=== PATIENT | female | born 2000 | race Caucasian/White ===

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

== ENCOUNTER 2020-04-18 13:14 | Emergency (ER) | payer OTHER ==
[2020-04-18] MEDS ORDERED: PROPARACAINE 0.5% OPHTH DROPS 15 ML BTL BOTH EYES STA (13:56)
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
[2020-04-18] MEDS ORDERED: FLUORESCEIN STRIPS 1 MG STRIP LEFT EYE ONE (14:44)
[2020-04-18 15:51] VITALS: BP 109/76; PULSE 66; RESP 16; TEMP 98.5
== END 2020-04-18 15:52 | disposition home or self-care (01) ==
LOC: EC 13:14
DX: H53.8 Other visual disturbances (principal); W22.8XXA Striking against or struck by other objects, initial encounter; Y92.69 Other specified industrial and construction area as the place of occurrence of the external cause; Y99.0 Civilian activity done for income or pay
CPT/HCPCS: 70480; 99284

== ENCOUNTER → 2020-05-03 | Outpatient (CLI) | payer OTHER | END | disposition home or self-care (01) | LOC: LABWHC1 08:23 | PROVIDERS: ATTEND Pediatrics Pediatric Infectious Diseases | DX: Z03.818 Encounter for observation for suspected exposure to other biological agents ruled out (principal) ==

== ENCOUNTER → 2020-05-04 | Outpatient (CLI) | payer OTHER | END | disposition home or self-care (01) | LOC: LABWHC1 16:27 | PROVIDERS: ATTEND Pediatrics Pediatric Infectious Diseases | DX: Z11.59 Encounter for screening for other viral diseases (principal) ==

== ENCOUNTER → 2020-07-05 | Outpatient (CLI) | payer OTHER | END | disposition home or self-care (01) | LOC: LABWHC1 14:32 | PROVIDERS: ATTEND Pediatrics Pediatric Infectious Diseases | DX: Z11.59 Encounter for screening for other viral diseases (principal) | CPT/HCPCS: 87635; C9803 ==

== ENCOUNTER 2020-07-13 15:44 | Emergency (ER) | payer OTHER ==
[2020-07-13 15:56] VITALS: TEMP 98.5
[2020-07-13 17:17] LABS: Basophils # (A) 0.1 k/uL (0-0.2); Basophils % (A) 1 %; Eosinophils # (A) 0.2 k/uL (0-0.7); Eosinophils % (A) 2 %; HCT 47.8 % (34.0-46.0); HGB 15.5 gm/dL (11.4-16.0); Lymphocytes # (A) 1.5 k/uL (1.0-4.8); Lymphocytes % (A) 21 %; MCH 29.3 pg (25.0-35.0); MCHC 32.3 g/dL (31.0-37.0); MCV 90.6 fL (80.0-100.0); Mean Platelet Volume 8.4; Monocytes # (A) 0.4 k/uL (0-1.0); Monocytes % (A) 5 %; Neutrophils # (A) 4.7 k/uL (1.3-7.7); Neutrophils % (A) 68 %; Platelet Count 195 k/uL (150-450); RBC 5.28 m/uL (3.80-5.40); RDW 13.3 % (11.5-15.5); WBC 6.9 k/uL (4.0-11.0)
[2020-07-13 17:24] LABS: Appearance,Urine Cloudy (Clear); Bacteria,Urine Occasional /hpf; Bilirubin,Urine Negative (Negative); Blood,Urine Negative (Negative); Color,Urine Yellow; Glucose,Urine (UA) Negative (Negative); Ketones,Urine 2+ (Negative); Leukocyte Esterase,Urine Small (Negative); Mucus,Urine Few /hpf; Nitrite,Urine Negative (Negative); PH, Urine 6.5 (5.0-8.0); Protein,Urine Negative (Negative); RBC,Urine 2 /hpf (0-5); Specific Gravity,Urine 1.021 (1.001-1.035); Squamous Epithelial Cell,Urine 9 /hpf (0-4); Urobilinogen,Urine <2.0 mg/dL (<2.0); WBC,Urine 8 /hpf (0-5)
[2020-07-13 17:25] LABS: Prothrombin Time 10.1 sec (9.0-12.0)
[2020-07-13 17:33] LABS: ALT 21 U/L (4-34); AST 34 U/L (14-36); African American GFR (CKD) >90 (>60 ml/min/1.73 sqM); Albumin 4.5 g/dL (3.5-5.0); Alkaline Phosphatase 75 U/L (38-126); Anion Gap 7 mmol/L; Blood Urea Nitrogen 15 mg/dL (7-17); Calcium 9.7 mg/dL (8.4-10.2); Carbon Dioxide 26 mmol/L (22-30); Chloride 103 mmol/L (98-107); Glucose 100 mg/dL (74-99); LDH 474 U/L (313-618); Magnesium 1.9 mg/dL (1.6-2.3); Non-African American GFR(CKD) >90 (>60 ml/min/1.73 sqM); Potassium 4.3 mmol/L (3.5-5.1); Sodium 136 mmol/L (137-145); Total Protein 7.7 g/dL (6.3-8.2)
--- NOTE | 2020-07-13 17:37 | XR ---
EXAMINATION TYPE: XR chest 1V portable DATE OF EXAM: 07/13/2020 Comparison: 02/01/2013 Clinical History: 20-year-old female with cough Suspected COVID-19 pneumonia Findings: The cardiomediastinal silhouette, aorta, and pulmonary vasculature are within normal limits. Hazy mi d to lower lung densities related to overlying soft tissue. No consolidation or pleural effusion. Impression: No acute cardiopulmonary process.
--- NOTE | 2020-07-13 17:39 | ED ---
General Adult HPI - General Chief complaint: Nausea/Vomiting/Diarrhea Stated complaint: Nausea,Vomiting Time Seen by Provider: 07/13/20 15:59 Source: patient, RN notes reviewed, old records reviewed Mode of arrival: ambulatory Limitations: no limitations - History of Present Illness Initial comments: 20-year-old female patient of pertinent past medical history presents ED for evaluation. Patient states that last week she has not been feeling well she had a cough about a week ago when on for few days has since resolved. Patient reports that she has been having some night sweats. She has been having some migraine headaches which are typical for her without any red flag features and not particularly concerning to patient. She denies any chest pain or shortness of breath this time. Denies any abdominal pain. Denies any other complaints. Patient did test negative for coronavirus about a week ago. Systemic: Pt denies fatigue, fever/chills, rash. Pt denies weakness, night sweats, weight loss. Neuro: Pt denies visual disturbances, syncope or pre-syncope. HEENT: Pt denies ocular discharge or irritation, otalgia, rhinorrhea, pharyngitis or notable lymphadenopathy. Cardiopulmonary: Pt denies chest pain, SOB, heart palpitations, dyspnea on e xertion. Abdominal/GI: Pt denies abdominal pain, n/v/d. : Pt denies dysuria, burning w/ urination, frequency/urgency. Denies new onset urinary or bowel incontinence. MSK: Pt denies myalgia, loss of strength or function in extremities. Neuro: Pt denies new onset weakness, paresthesias. - Related Data Home Medications Medication Instructions Recorded Confirmed [id number]-[id number] 1 tab PO QAM 04/17/19 04/18/20 Allergies Allergy/AdvReac Type Severity Reaction Status Date / Time No Known Allergies Allergy Verified 07/13/20 15:56 Review of Systems ROS Statement: Those systems with pertinent positive or pertinent negative responses have been documented in the HPI. ROS Other: All systems not noted in ROS Statement are negative. Past Medical History Past Medical History: Asthma History of Any Multi-Drug Resistant Organisms: None Reported Past Surgical History: No Surgical Hx Reported Past Psychological History: Anxiety, Depression Smoking Status: Never smoker Past Alcohol Use History: None Reported, Occasional Past Drug Use History: Marijuana General Exam - General Exam Comments Initial Comments: Constitutional: NAD, AOX3, Pt has pleasant affect. HEENT: NC/AT, trachea midline, neck supple, no lymphadenopathy. Posterior pharynx non erythematous, without exudates. External ears appear normal, without discharge. Mucous membranes moist. Eyes PERRLA, EOM intact. There is no scleral icterus. No pallor noted. Cardiopulmonary: RRR, no murmurs, rubs or gallops, no JVD noted. Lungs CTAB in anterior and posterior byrd. No peripheral edema. Abdominal exam: Abdomen soft and non-distended. Abdomen non-tender to palpation in all 4 quadrants. Bowel sounds active in LLQ. No hepatosplenomegaly. No ecchymosis Neuro: CN II-XII intact. No nuchal rigidity. No raccon eyes, no rowe sign, no hemotympanum. No cervical spinal tenderness. Kernig's and Brudzinski's negative. MSK: No posterior calf tenderness bilaterally, homans sign negative bilaterally. Posterior tibialis and radial pulse +2 bilaterally. Sensation intact in upper and lower extremities. Full active ROM in upper and lower extremities, 5/5 stregnth. Limitations: no limitations Course Vital Signs 07/13/20 07/13/20 15:51 19:07 Temperature 98.5 F Pulse Rate 85 66 Respiratory 16 18 Rate Blood Pressure 117/73 108/74 O2 Sat by Pulse 99 100 Oximetry Medical Decision Making - Medical Decision Making 20-year-old female patient presents today for evaluation of a generalized not feeling well for the last week and half. Patient coughing which has since reso lved. Having her headaches are typical for her. Reports she is having some night sweats. Denies any abdominal pain. Does report anosmia. Patient did test negative for covid19 about a week ago. Physical exam didn't display acute pathology. Laboratory investigations revealed +2 ketones small leukocyte esterase. 9 squamous cells. Chest x-ray revealed no acute cardiopulmonary process. Patient tested again for coronavirus. patient reevaluated states that headache is minimal is declining CAT scan is continues deny any red flag symptoms. Reports that it is behind her left eye and feels similar to her migraines the past. She states that she mostly wanted to get tested again for coronavirus of that she can go back to work. will follow up with primary care provider and return to ER if condition worsens. Case discussed with Dr. Will - Lab Data Result diagrams: 07/13/20 16:54 07/13/20 16:54 Lab Results 07/13/20 07/13/20 07/13/20 Range/Units 16:54 16:54 16:54 WBC 6.9 (4.0-11.0) k/uL RBC 5.28 (3.80-5.40) m/uL Hgb 15.5 (11.4-16.0) gm/dL Hct 47.8 H (34.0-46.0) % MCV 90.6 (80.0-100.0) fL MCH 29.3 (25.0-35.0) pg MCHC 32.3 (31.0-37.0) g/dL RDW 13.3 (11.5-15.5) % Plt Count 195 (150-450) k/uL Neutrophils % 68 % Lymphocytes % 21 % Monocytes % 5 % Eosinophils % 2 % Basophils % 1 % Neutrophils # 4.7 (1.3-7.7) k/uL Lymphocytes # 1.5 (1.0-4.8) k/uL Monocytes # 0.4 (0-1.0) k/uL Eosinophils # 0.2 (0-0.7) k/uL Basophils # 0.1 (0-0.2) k/uL PT 10.1 (9.0-12.0) sec INR 1.0 (<1.2) APTT 25.0 (22.0-30.0) sec D-Dimer (<0.60) mg/L FEU Sodium 136 L (137-145) mmol/L Potassium 4.3 (3.5-5.1) mmol/L Chloride 103 (98-107) mmol/L Carbon Dioxide 26 (22-30) mmol/L Anion Gap 7 mmol/L BUN 15 (7-17) mg/dL Creatinine 0.64 (0.52-1.04) mg/dL Est GFR (CKD-EPI)AfAm >90 (>60 ml/min/1.73 sqM) Est GFR (CKD-EPI)NonAf >90 (>60 ml/min/1.73 sqM) Glucose 100 H (74-99) mg/dL Plasma Lactic Acid Bennie (0.7-2.0) mmol/L Calcium 9.7 (8.4-10.2) mg/dL Magnesium 1.9 (1.6-2.3) mg/dL Total Bilirubin 1.0 (0.2-1.3) mg/dL AST 34 (14-36) U/L ALT 21 (4-34) U/L Alkaline Phosphatase 75 (38-126) U/L Lactate Dehydrogenase 474 (313-618) U/L Troponin I (0.000-0.034) ng/mL Total Protein 7.7 (6.3-8.2) g/dL Albumin 4.5 (3.5-5.0) g/dL Urine Color Urine Appearance (Clear) Urine pH (5.0-8.0) Ur Specific [place] (1.001-1.035) Urine Protein (Negative) Urine Glucose (UA) (Negative) Urine Ketones (Negative) Urine Blood (Negative) Urine Nitrite (Negative) Urine Bilirubin (Negative) Urine Urobilinogen (<2.0) mg/dL Ur Leukocyte Esterase (Negative) Urine RBC (0-5) /hpf Urine WBC (0-5) /hpf Ur Squamous Epith Cells (0-4) /hpf Urine Bacteria (None) /hpf Urine Mucus (None) /hpf Urine HCG, Qual (Not Detectd) 07/13/20 07/13/20 07/13/20 Range/Units 16:54 16:54 16:54 WBC (4.0-11.0) k/uL RBC (3.80-5.40) m/uL Hgb (11.4-16.0) gm/dL Hct (34.0-46.0) % MCV (80.0-100.0) fL MCH (25.0-35.0) pg MCHC (31.0-37.0) g/dL RDW (11.5-15.5) % Plt Count (150-450) k/uL Neutrophils % % Lymphocytes % % Monocytes % % Eosinophils % % Basophils % % Neutrophils # (1.3-7.7) k/uL Lymphocytes # (1.0-4.8) k/uL Monocytes # (0-1.0) k/uL Eosinophils # (0-0.7) k/uL Basophils # (0-0.2) k/uL PT (9.0-12.0) sec INR (<1.2) APTT (22.0-30.0) sec D-Dimer (<0.60) mg/L FEU Sodium (137-145) mmol/L Potassium (3.5-5.1) mmol/L Chloride (98-107) mmol/L Carbon Dioxide (22-30) mmol/L Anion Gap mmol/L BUN (7-17) mg/dL Creatinine (0.52-1.04) mg/dL Est GFR (CKD-EPI)AfAm (>60 ml/min/1.73 sqM) Est GFR (CKD-EPI)NonAf (>60 ml/min/1.73 sqM) Glucose (74-99) mg/dL Plasma Lactic Acid Bennie 0.8 (0.7-2.0) mmol/L Calcium (8.4-10.2) mg/dL Magnesium (1.6-2.3) mg/dL Total Bilirubin (0.2-1.3) mg/dL AST (14-36) U/L ALT (4-34) U/L Alkaline Phosphatase (38-126) U/L Lactate Dehydrogenase (313-618) U/L Troponin I (0.000-0.034) ng/mL Total Protein (6.3-8.2) g/dL Albumin (3.5-5.0) g/dL Urine Color Yellow Urine Appearance Cloudy H (Clear) Urine pH 6.5 (5.0-8.0) Ur Specific [place] 1.021 (1.001-1.035) Urine Protein Negative (Negative) Urine Glucose (UA) Negative (Negative) Urine Ketones 2+ H (Negative) Urine Blood Negative (Negative) Urine Nitrite Negative (Negative) Urine Bilirubin Negative (Negative) Urine Urobilinogen <2.0 (<2.0) mg/dL Ur Leukocyte Esterase Small H (Negative) Urine RBC 2 (0-5) /hpf Urine WBC 8 H (0-5) /hpf Ur Squamous Epith Cells 9 H (0-4) /hpf Urine Bacteria Occasional H (None) /hpf Urine Mucus Few H (None) /hpf Urine HCG, Qual Not Detected (Not Detectd) 07/13/20 07/13/20 Range/Units 16:54 16:54 WBC (4.0-11.0) k/uL RBC (3.80-5.40) m/uL Hgb (11.4-16.0) gm/dL Hct (34.0-46.0) % MCV (80.0-100.0) fL MCH (25.0-35.0) pg MCHC (31.0-37.0) g/dL RDW (11.5-15.5) % Plt Count (150-450) k/uL Neutrophils % % Lymphocytes % % Monocytes % % Eosinophils % % Basophils % % Neutrophils # (1.3-7.7) k/uL Lymphocytes # (1.0-4.8) k/uL Monocytes # (0-1.0) k/uL Eosinophils # (0-0.7) k/uL Basophils # (0-0.2) k/uL PT (9.0-12.0) sec INR (<1.2) APTT (22.0-30.0) sec D-Dimer 0.24 (<0.60) mg/L FEU Sodium (137-145) mmol/L Potassium (3.5-5.1) mmol/L Chloride (98-107) mmol/L Carbon Dioxide (22-30) mmol/L Anion Gap mmol/L BUN (7-17) mg/dL Creatinine (0.52-1.04) mg/dL Est GFR (CKD-EPI)AfAm (>60 ml/min/1.73 sqM) Est GFR (CKD-EPI)NonAf (>60 ml/min/1.73 sqM) Glucose (74-99) mg/dL Plasma Lactic Acid Bennie (0.7-2.0) mmol/L Calcium (8.4-10.2) mg/dL Magnesium (1.6-2.3) mg/dL Total Bilirubin (0.2-1.3) mg/dL AST (14-36) U/L ALT (4-34) U/L Alkaline Phosphatase (38-126) U/L Lactate Dehydrogenase (313-618) U/L Troponin I <0.012 (0.000-0.034) ng/mL Total Protein (6.3-8.2) g/dL Albumin (3.5-5.0) g/dL Urine Color Urine Appearance (Clear) Urine pH (5.0-8.0) Ur Specific [place] (1.001-1.035) Urine Protein (Negative) Urine Glucose (UA) (Negative) Urine Ketones (Negative) Urine Blood (Negative) Urine Nitrite (Negative) Urine Bilirubin (Negative) Urine Urobilinogen (<2.0) mg/dL Ur Leukocyte Esterase (Negative) Urine RBC (0-5) /hpf Urine WBC (0-5) /hpf Ur Squamous Epith Cells (0-4) /hpf Urine Bacteria (None) /hpf Urine Mucus (None) /hpf Urine HCG, Qual (Not Detectd) - EKG Data -: EKG Interpreted by Me (and Dr. Will ) EKG Comments: ventricular rate 58, painful and 44, QRS 74, QT/QTC 396D. Sinus bradycardia, rightward axis deviation. Abnormal EKG. No concern for acute ischemia. Disposition Clinical Impression: Migraine headache, COVID-19 virus test result unknown Disposition: HOME SELF-CARE Condition: Stable Instructions (If sedation given, give patient instructions): Migraine Headache (ED) Additional Instructions: Follow up with primary care provider tomorrow. Return to ER if any worsening symptoms. Is patient prescribed a controlled substance at d/c from ED?: No Referrals: None,Stated [Primary Care Provider] - 1-2 days Otilio Reed [STAFF PHYSICIAN] - 1-2 days
[2020-07-13] MEDS ORDERED: SODIUM CHLORIDE 0.9% 1,000 ML IV ONE (17:46)
[2020-07-13 19:08] VITALS: BP 108/74; PULSE 66; RESP 18
[2020-07-13] MEDS ORDERED: ACETAMINOPHEN TAB 325 MG TAB PO STA (19:27)
[2020-07-14 00:32] LABS: Ferritin 53.9 ng/mL (10.0-291.0)
== END 2020-07-13 19:57 | disposition home or self-care (01) ==
LOC: EC 15:44
DX: G43.909 Migraine, unspecified, not intractable, without status migrainosus (principal); R05 Cough; R61 Generalized hyperhidrosis; R43.0 Anosmia; R82.4 Acetonuria; R82.998 Other abnormal findings in urine; Z20.828 Contact with and (suspected) exposure to other viral communicable diseases; Z79.3 Long term (current) use of hormonal contraceptives
CPT/HCPCS: 36415; 93005; 85379; 80053; 82728; 83605; 83615; 83735; 84484; 85025; 85610; 85730; 81001; 81025; 71045; 96360; 99284; U0003

== ENCOUNTER → 2020-11-02 | Outpatient (CLI) | payer OTHER ==
[2020-11-02 13:54] LABS: Basophils % (A) 0 %; Eosinophils # (A) 0.2 k/uL (0-0.7); Eosinophils % (A) 2 %; HGB 15.2 gm/dL (11.4-16.0); Lymphocytes # (A) 1.1 k/uL (1.0-4.8); Lymphocytes % (A) 13 %; MCH 30.1 pg (25.0-35.0); MCHC 33.1 g/dL (31.0-37.0); MCV 90.9 fL (80.0-100.0); Mean Platelet Volume 8.9; Monocytes # (A) 0.5 k/uL (0-1.0); Monocytes % (A) 6 %; Neutrophils # (A) 6.6 k/uL (1.3-7.7); Neutrophils % (A) 78 %; Platelet Count 169 k/uL (150-450); RBC 5.05 m/uL (3.80-5.40); RDW 13.3 % (11.5-15.5); WBC 8.6 k/uL (4.0-11.0)
[2020-11-02 20:58] LABS: African American GFR (CKD) 106.7 (60.0-200.0); Albumin 4.7 g/dL (3.80-4.90); Albumin/Globulin Ratio 2.04 (1.60-3.17); Anion Gap 8.7 mmol/L (4.00-12.00); BUN/Creat Ratio 11.11 Ratio (12.00-20.00); Calcium 9.8 mg/dL (8.7-10.3); Carbon Dioxide 26.3 mmol/L (21.6-31.8); Chol/HDL Ratio 2.59; Globulin 2.3 g/dL (1.6-3.3); LDL Cholesterol,Calculated 78.6 mg/dL (0.0-131.0); Potassium 3.9 mmol/L (3.5-5.5); Total Bilirubin 0.8 mg/dL (0.3-1.2); VLDL Calculation 10.4 mg/dL (5.00-40.00)
[2020-11-02 21:12] LABS: HIV 2 AB Non-Reactive (Non-Reactive); HIV AB P24 Non-Reactive (Non-Reactive); HIV P24 AG Non-Reactive (Non-Reactive)
[2020-11-02 21:50] LABS: Hepatitis A Antibody IgM Non-Reactive (Non-Reactive); Hepatitis B Core IgM Non-Reactive (Non-Reactive); Hepatitis B Surface Antigen Non-Reactive (Non-Reactive); Hepatitis C IgG Antibody Non-Reactive (Non-Reactive)
[2020-11-05 06:27] LABS: Herpes simplex I and/or II IgM 0.55 INDEX (<=0.90); Herpes simplex IgG I Ab 0.16 (< or = 0.90); Herpes simplex IgG II Ab 0.43 (< or = 0.90)
== END | disposition home or self-care (01) ==
LOC: LABWHC1 12:58
PROVIDERS: ATTEND Nurse Practitioner Family
DX: Z00.00 Encounter for general adult medical examination without abnormal findings (principal); Z11.3 Encounter for screening for infections with a predominantly sexual mode of transmission
CPT/HCPCS: 36415; 80053; 80061; 80074; 84439; 84443; 85025; 86694; 86695; 86696; 87390; 87491; 87591

== ENCOUNTER → 2020-12-26 | Outpatient (CLI) | payer OTHER ==
--- NOTE | 2020-12-26 17:47 | CT ---
EXAMINATION TYPE: CT abdomen pelvis wo con DATE OF EXAM: 12/26/2020 COMPARISON: 12/10/2019 HISTORY: RLQ pain CT DLP: 210.9 mGycm Automated exposure control for dose reduction was used. Lung bases are clear. There is no pleural effusion. Heart size is normal. There is no pericardial eff usion. Liver and spleen appear intact. The bile ducts are not dilated. Stomach is intact. There is no eviden ce of pancreatic mass. There is no adrenal mass. Kidneys have normal size. There are multiple small calculi in the right kid kelsey that measure up to 2 mm. There are probably some tiny calculi also in the left kidney. There is n o hydronephrosis. Ureters are not dilated. There is no evidence of retroperitoneal adenopathy. Bladde r distends smoothly. There is 5.5 cm cyst in the pelvis on the right side that is probably ovarian cy st. There is fluid-filled appendix that measures up to 7 mm. There is no sign of any surrounding infl ammation. There is no free fluid in the pelvis. There is no ascites or free air. There is no evidence of bowel obstruction. There is no mesenteric edema. Lumbar vertebra have normal alignment. Posterior elements are intact. Bony pelvis is intact. The hip joints appear normal. IMPRESSION: Appendix within normal limits and not changed compared to old exam. Large cyst in the pelvis on the right side consistent with ovarian cyst that is new compared to old e xam. Multiple tiny nonobstructing renal calculi.
== END | disposition home or self-care (01) ==
LOC: RADCTMAIN 17:04
PROVIDERS: ATTEND Nurse Practitioner Family
DX: N94.89 Other specified conditions associated with female genital organs and menstrual cycle (principal); N20.0 Calculus of kidney
CPT/HCPCS: 74176

== ENCOUNTER → 2021-01-17 | Outpatient (CLI) | payer OTHER ==
--- NOTE | 2021-01-17 08:55 | US ---
EXAMINATION TYPE: US pelvic complete DATE OF EXAM: 01/17/2021 COMPARISON: CT 12/26/20 CLINICAL HISTORY: 20-year-old female N83.20 Ovarian cyst. History of kidney stones and ovarian cysts. TECHNIQUE: Transabdominal sonographic images of the pelvis were acquired. Date of LMP: 01/04/21 FINDINGS: EXAM MEASUREMENTS: Uterus: 7.8 x 4.9 x 4.2 cm Endometrial Stripe: 0.3 cm Right Ovary: 3.7 x 2.8 x 2.8 cm Left Ovary: 3.8 x 2.7 x 2.4 cm 1. Uterus: Anteverted and otherwise wnl 2. Endometrium: wnl 3. Right Ovary: With follicular change 4. Left Ovary: With follicular change. A dominant cyst measures 2.3 x 2.0 x 1.8 cm 5. Bilateral Adnexa: wnl 6. Posterior cul-de-sac: wnl IMPRESSION: 1. Normal endometrial stripe at 3 mm. No pelvic free fluid. 2. Normal follicular change and the ovaries. 3. A 2.3 cm dominant follicle or functional cyst now seen in the left ovary. The right ovarian cyst s een on the 12/26/2020 CT has resolved.
== END | disposition home or self-care (01) ==
LOC: RADUSWWP 07:50
PROVIDERS: ATTEND Obstetrics & Gynecology
DX: N83.201 Unspecified ovarian cyst, right side (principal)
CPT/HCPCS: 76856

== ENCOUNTER → 2021-03-12 | Outpatient (CLI) | payer OTHER ==
[2021-03-12 18:47] LABS: INR 0.92 (0.90-1.11); Prothrombin Time 10.1 sec (9.9-11.9)
[2021-03-12 18:58] LABS: Basophils # (A) 0.05 X 10*3/uL (0.00-0.10); Basophils % (A) 0.8 %; Eosinophils # (A) 0.12 X 10*3/uL (0.04-0.35); Eosinophils % (A) 1.8 %; HCT 46.1 % (37.2-46.3); HGB 15.1 g/dL (12.0-15.0); Lymphocytes # (A) 1.23 X 10*3/uL (0.90-5.00); Lymphocytes % (A) 18.7 %; MCH 30.5 pg (27.0-32.0); MCHC 32.8 g/dL (32.0-37.0); MCV 93.1 fL (80.0-97.0); Mean Platelet Volume 11.4 fL (9.5-12.2); Monocytes # (A) 0.43 X 10*3/uL (0.20-1.00); Monocytes % (A) 6.5 %; Neutrophils # (A) 4.72 X 10*3/uL (1.80-7.70); Neutrophils % (A) 71.9 %; Platelet Count 243 X 10*3/uL (140-440); RBC 4.95 X 10*6/uL (4.10-5.20); WBC 6.57 X 10*3/uL (4.50-10.00)
[2021-03-13 00:06] LABS: African American GFR (CKD) 106.7 (60.0-200.0); Albumin 4.8 g/dL (3.80-4.90); Anion Gap 11.5 mmol/L (4.00-12.00); BUN/Creat Ratio 12.22 Ratio (12.00-20.00); Carbon Dioxide 24.5 mmol/L (21.6-31.8); Globulin 2.4 g/dL (1.6-3.3); Potassium 4.5 mmol/L (3.5-5.5); Total Bilirubin 0.8 mg/dL (0.2-1.2); Total Protein 7.2 g/dL (6.2-8.2)
== END | disposition home or self-care (01) ==
LOC: LABWHC1 13:00
PROVIDERS: ATTEND Nurse Practitioner Family
DX: R58 Hemorrhage, not elsewhere classified (principal)
CPT/HCPCS: 36415; 80053; 85025; 85610

== ENCOUNTER 2021-03-17 14:55 | Emergency (ER) | payer OTHER ==
[2021-03-17 15:21] VITALS: BP 119/70; PULSE 73; RESP 18; TEMP 98.1
[2021-03-17] MEDS ORDERED: CYCLOBENZAPRINE 5 MG TAB PO STA (15:34)
[2021-03-17] MEDS ORDERED: ACETAMINOPHEN TAB 325 MG TAB PO STA (15:35)
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
[2021-03-17] MEDS ORDERED: CYCLOBENZAPRINE 10MG STARTER 3 TAB BTL PO STA (17:47)
== END 2021-03-17 18:25 | disposition home or self-care (01) ==
LOC: EC 14:55
DX: M54.2 Cervicalgia (principal); R51.9 Headache, unspecified; J45.909 Unspecified asthma, uncomplicated; F12.90 Cannabis use, unspecified, uncomplicated; V89.2XXA Person injured in unspecified motor-vehicle accident, traffic, initial encounter; Y92.89 Other specified places as the place of occurrence of the external cause
CPT/HCPCS: 70450; 72125; 99284

== ENCOUNTER → 2021-03-26 | Outpatient (CLI) | payer OTHER ==
--- NOTE | 2021-03-26 14:48 | XR ---
EXAMINATION TYPE: XR ribs RT w pa chest xray DATE OF EXAM: 03/26/2021 COMPARISON: NONE TECHNIQUE: PA view of the chest and 4 views of the right ribs are submitted. HISTORY: Pain FINDINGS: The lungs are clear and there is no pneumothorax, pleural effusion, or focal pneumonia. Rib cage is intact. Heart size normal. No overt failure. IMPRESSION: 1. No acute process.
--- NOTE | 2021-03-26 14:49 | XR ---
EXAMINATION TYPE: XR shoulder complete RT DATE OF EXAM: 03/26/2021 COMPARISON: NONE HISTORY: Pain TECHNIQUE: Three views are submitted. FINDINGS: The osseous structures are intact. There is no acute fracture or dislocation. The AC joint is maint ained. IMPRESSION: 1. No acute process.
== END | disposition home or self-care (01) ==
LOC: RADXRMAIN 14:14
PROVIDERS: ATTEND Family Medicine
DX: M25.511 Pain in right shoulder (principal); R07.9 Chest pain, unspecified

== ENCOUNTER 2021-06-28 11:37 | Emergency (ER) | payer OTHER ==
[2021-06-28 11:56] VITALS: BP 124/83; PULSE 71; RESP 16; TEMP 98.6
[2021-06-28] MEDS ORDERED: DIPH,PERTUS(ACELL)TETVAC-LF 0.5 ML VIAL IM ONE (12:18)
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
== END 2021-06-28 12:47 | disposition home or self-care (01) ==
LOC: EC 11:37
DX: S71.011A Laceration without foreign body, right hip, initial encounter (principal); J45.909 Unspecified asthma, uncomplicated; F32.9 Major depressive disorder, single episode, unspecified; F41.9 Anxiety disorder, unspecified; F17.290 Nicotine dependence, other tobacco product, uncomplicated; F12.90 Cannabis use, unspecified, uncomplicated; Z79.899 Other long term (current) drug therapy; Z23 Encounter for immunization; W26.8XXA Contact with other sharp object(s), not elsewhere classified, initial encounter
CPT/HCPCS: 12002; 90471; 90715; 99282

== ENCOUNTER → 2021-09-04 | Outpatient (CLI) | payer OTHER | END | disposition home or self-care (01) | LOC: LABWHC1 15:44 | PROVIDERS: ATTEND Family Medicine | DX: Z20.822 Contact with and (suspected) exposure to COVID-19 (principal); J06.9 Acute upper respiratory infection, unspecified | CPT/HCPCS: 87502; U0003; C9803; U0005 ==

== ENCOUNTER 2021-12-21 12:12 | Emergency (ER) | payer OTHER ==
[2021-12-21 12:22] VITALS: BP 135/73; PULSE 76; RESP 18; TEMP 98.2
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
[2021-12-21 13:21] LABS: Appearance,Urine Clear (Clear); Bilirubin,Urine Negative (Negative); Blood,Urine Negative (Negative); Color,Urine Light Yellow; Glucose,Urine (UA) Negative (Negative); Ketones,Urine Negative (Negative); Leukocyte Esterase,Urine Negative (Negative); Nitrite,Urine Negative (Negative); PH, Urine 6.5 (5.0-8.0); Protein,Urine Negative (Negative); Specific Gravity,Urine 1.009 (1.001-1.035); Urobilinogen,Urine <2.0 mg/dL (<2.0)
[2021-12-21] MEDS ORDERED: KETOROLAC 15 MG/ML 1 ML VIAL IM STA (13:26)
[2021-12-21] MEDS ORDERED: valACYclovir 500 MG TAB PO STA (13:27)
[2021-12-23 14:45] LABS: C. trachomatis,PCR Negative (Neg,Equiv); Chlamydia trachomatis Source Endocervical; N. gonorrhoeae,PCR Negative (Neg,Equiv); Neisseria Source Endocervical
[2021-12-24 01:01] LABS: HSV II IgG Interp NEGATIVE (NEGATIVE)
== END 2021-12-21 13:58 | disposition home or self-care (01) ==
LOC: EC 12:12
DX: A60.04 Herpesviral vulvovaginitis (principal); F17.290 Nicotine dependence, other tobacco product, uncomplicated; J45.909 Unspecified asthma, uncomplicated
CPT/HCPCS: 36415; 87529; 86694; 81003; 81025; 87808; 86696; 87491; 87591; 99283; 96372; J1885

== ENCOUNTER → 2022-07-01 | Outpatient (CLI) | payer OTHER ==
--- NOTE | 2022-07-01 14:10 | US ---
EXAMINATION TYPE: US pelvic complete DATE OF EXAM: 07/01/2022 COMPARISON: US 2020 CLINICAL HISTORY: R10.2 PELVIC PAIN. Pelvic pain x 5 days TECHNIQUE: . Transabdominal sonographic images of the pelvis were acquired. Date of LMP: 06/05/2022 EXAM MEASUREMENTS: Uterus: 7.7 x 3.3 x 4.1 cm Endometrial Stripe: 0.5 cm Right Ovary: 2.2 x 3.0 x 3.3 cm Left Ovary: 3.0 x 1.9 x 2.6 cm 1. Uterus: anteverted 2. Endometrium: appears wnl 3. Right Ovary: multiple follicles 4. Left Ovary: multiple follicles 5. Bilateral Adnexa: free fluid in right adnexa 6. Posterior cul-de-sac: wnl Bladder is sonolucent. The posterior wall is normal. IMPRESSION: 1. Normal pelvic ultrasound
== END | disposition home or self-care (01) ==
LOC: RADUSWWP 12:11
PROVIDERS: ATTEND Obstetrics & Gynecology
DX: N83.209 Unspecified ovarian cyst, unspecified side (principal); R10.2 Pelvic and perineal pain
CPT/HCPCS: 76856

== ENCOUNTER 2023-10-07 06:35 | Emergency (ER) | payer OTHER ==
[2023-10-07 06:59] VITALS: BP 132/92; PULSE 67; RESP 18; TEMP 97.9
--- NOTE | 2023-10-07 07:37 | CT ---
EXAMINATION TYPE: CT brain wo con CT DLP: 1095.4 mGycm, Automated exposure control for dose reduction was used. DATE OF EXAM: 10/07/2023 7:32 AM COMPARISON: 03/17/2021. CLINICAL INDICATION:Female, 23 years old with history of headache, Frontal head trauma, c/o headache, denies LOC TECHNIQUE: Brain: Axial CT images of the brain were obtained with coronal and sagittal reformats created and rev iewed. Contrast used: None. Oral contrast used: None. FINDINGS: Brain: Extra-axial spaces: No abnormal extra-axial fluid collections. Ventricular system: Within normal limits Cerebral parenchyma: No acute intraparenchymal hemorrhage or mass effect. The lai-white junction is well differentiated. Cerebellum: Unremarkable. Mass effect: No evidence of midline shift. Intracranial vasculature: unremarkable Soft tissues: Normal. Calvarium/osseous structures: No depressed skull fracture. Paranasal sinuses and mastoid air cells: Clear Visualized orbits: Orbital contents are intact. IMPRESSION: No acute intracranial process.
[2023-10-07] MEDS ORDERED: ACETAMINOPHEN TAB 325 MG TAB PO STA (07:44)
--- NOTE | 2023-10-07 07:45 | ED ---
General Adult HPI - General Chief complaint: Head Injury Stated complaint: [facility] - Head Injury Time Seen by Provider: 10/07/23 06:54 Source: patient, RN notes reviewed Mode of arrival: ambulatory Limitations: no limitations - History of Present Illness Initial comments: 23-year-old female with no significant past medical history presents to the emergency department with a chief complaint of head injury. Patient reports that she was at her job when she was attempting to tighten something on machinery when it came loose and hit her on the right zoroastrian. She denies loss of consciousness. Denies anticoagulant use. She reports a bout of dizziness that quickly resolved within a few seconds. She denies any vision changes or vision loss, headache, nausea, vomiting at the time of evaluation. She does report that her right zoroastrian feels warmer than normal. - Related Data Home Medications Medication Instructions Recorded Confirmed FLUoxetine HCL [PROzac] 20 mg PO HS 03/17/21 06/28/21 lamoTRIgine [LaMICtal] 50 mg PO BID 03/17/21 06/28/21 busPIRone HCL 10 mg PO BID 06/28/21 06/28/21 Previous Rx's Medication Instructions Recorded valACYclovir HCL [Valtrex] 500 mg PO BID 3 Days #6 tab 12/21/21 Allergies Allergy/AdvReac Type Severity Reaction Status Date / Time No Known Allergies Allergy Verified 07/23/22 11:56 Review of Systems ROS Statement: Those systems with pertinent positive or pertinent negative responses have been documented in the HPI. ROS Other: All systems not noted in ROS Statement are negative. Past Medical History Past Medical History: Asthma History of Any Multi-Drug Resistant Organisms: None Reported Past Surgical History: No Surgical Hx Reported Past Psychological History: Anxiety, Depression Smoking Status: Current every day smoker, Vaper Past Alcohol Use History: Occasional Past Drug Use History: Marijuana General Exam - General Exam Comments Initial Comments: General: Alert, in no acute distress Head: atraumatic normocephalic. Eyes PERRL, EOMI intact, mucous membranes moist Respiratory: Lungs clear to auscultation bilaterally Cardiovascular: Heart rate regular and rhythm Abdominal: Soft without guarding or rebound Extremities: Normal inspection with full range of motion and normal capillary refill Neuroogic: alert and oriented 3, CN II-XII intact, able to ambulate with steady gait Skin: warm dry and intact with normal color Limitations: no limitations Course Vital Signs 10/07/23 06:45 Temperature 97.9 F Pulse Rate 67 Respiratory 18 Rate Blood Pressure 132/92 O2 Sat by Pulse 99 Oximetry Medical Decision Making - Medical Decision Making Was pt. sent in by a medical professional or institution (CRISTY Weinstein, SHIPPING AND RECEIVING MATERIAL HANDLER, urgent care, hospital, or senior living...) When possible be specific @ -[No] Did you speak to anyone other than the patient for history (EMS, parent, family, police, friend...)? What history was obtained from this source @ -[No] Did you review nursing and triage notes (agree or disagree)? Why? @ -[I reviewed and agree with nursing and triage notes] Were old charts reviewed (outside hosp., previous admission, EMS record, old EKG, old radiological studies, urgent care reports/EKG's, senior living records)? Report findings @ -[No old charts were reviewed] Differential Diagnosis (chest pain, altered mental status, abdominal pain women, abdominal pain men, vaginal bleeding, weakness, fever, dyspnea, syncope, headach e, dizziness, GI bleed, back pain, seizure, CVA, palpatations, mental health, musculoskeletal)? @ -[not applicable] EKG interpreted by me (3pts min.). @ -[As above] X-rays interpreted by me (1pt min.). @ -[None done] CT interpreted by me (1pt min.). @ -CT head does not reveal any evidence of intracranial process U/S interpreted by me (1pt. min.). @ -[None done] What testing was considered but not performed or refused? (CT, X-rays, U/S, labs)? Why? @ -[None] What meds were considered but not given or refused? Why? @ -[None] Did you discuss the management of the patient with other professionals (professionals i.e. CRISTY Weinstein, SHIPPING AND RECEIVING MATERIAL HANDLER, lab, RT, psych nurse, social worker clinical, yield analyst, teacher, worldwide chief creative officer, immigration case manager)? Give summary @ -[No] Was smoking cessation discussed for >3mins.? @ -[No] Was critical care preformed (if so, how long)? @ -[No] Were there social determinants of health that impacted care today? How? (Homelessness, low income, unemployed, alcoholism, drug addiction, transportation, low edu. Level, literacy, decrease access to med. care, shelter, rehab)? @ -[No] Was there de-escalation of care discussed even if they declined (Discuss DNR or withdrawal of care, Hospice)? DNR status @ -[No] What co-morbidities impacted this encounter? (DM, HTN, Smoking, COPD, CAD, Cancer, CVA, ARF, Chemo, Hep., AIDS, mental health diagnosis, sleep apnea, morbid obesity)? @ -[None] Was patient admitted / discharged? Hospital course, mention meds given and route, prescriptions, significant lab abnormalities, going to OR and other pertinent info. @ -Discharged. This is a pleasant 23-year-old female presents the emergency department with head injury. Patient had a thorough history and physical exam performed. Physical exam is essentially unremarkable. Heart rate regular rate and rhythm, lungs are to auscultation bilaterally abdomen soft and nontender. There are no focal neuro deficits on exam. Patient able to move all extremities freely., And able to ambulate with a steady gait. Patient had CT imaging which was negative for any intracranial proccess. I discussed results in detail with the patient verbalized understanding and all questions were addressed. Patient will be discharged home in stable condition. Return precautions discussed at length. Case discussed with Dr. Will Papo who agrees with plan of care Undiagnosed new problem with uncertain prognosis? @ -[No] Drug Therapy requiring intensive monitoring for toxicity (Heparin, Nitro, Insulin, Cardizem)? @ -[No] Were any procedures done? @ -[No] Diagnosis/symptom? @ -Head Injury Acute, or Chronic, or Acute on Chronic? @ -Acute Uncomplicated (without systemic symptoms) or Complicated (systemic symptoms)? @ -Uncomplicated Side effects of treatment? @ -[No] Exacerbation, Progression, or Severe Exacerbation? @ -[No] Poses a threat to life or bodily function? How? (Chest pain, [place], MD, pneumonia, PE, COPD, DKA, ARF, appy, cholecystitis, CVA, Diverticulitis, Homicidal, Suicidal, threat to staff... and all critical care pts) @ -Low likelihood Disposition Clinical Impression: Head injury Disposition: HOME SELF-CARE Condition: Stable Instructions (If sedation given, give patient instructions): Concussion (ED) Additional Instructions: Please take Tylenol for headache Please increase fluids over the next 3-5 days Please return to the nearest emergency department if symptoms worsen or persist Is patient prescribed a controlled substance at d/c from ED?: No Referrals: None,Stated [Primary Care Provider] - 1-2 days Time of Disposition: 07:44
== END 2023-10-07 08:18 | disposition home or self-care (01) ==
LOC: EC 06:35
DX: S09.90XA Unspecified injury of head, initial encounter (principal); J45.909 Unspecified asthma, uncomplicated; F32.A Depression, unspecified; F41.9 Anxiety disorder, unspecified; F12.90 Cannabis use, unspecified, uncomplicated; F17.290 Nicotine dependence, other tobacco product, uncomplicated; Z79.899 Other long term (current) drug therapy; W22.8XXA Striking against or struck by other objects, initial encounter
CPT/HCPCS: 70450; 99283